=== PATIENT | female | born 1960 | race African-American/Black ===

== ENCOUNTER 2021-05-18 21:00 | Emergency (ER) | payer MEDICARE ==
[~2021-05-18] VITALS: Ht 175.3 cm; Wt 135.9 kg
[~2021-05-18 21:00] MED LIST: ASPIRIN 81M81 MG/TA2 PO; EFFEXOR 75M75 MG/TAB PO; FERRO-TIME325 MG PO; FOLIC ACID 11 MG/TA1 PO; K-TAB10 PO; KLONOPIN 0.5MG0.5 MG PO; LASIX 40MG TABL40 MG PO; LIPITOR20 MG PO; METHOTREXA2.5 MG/TAB PO; NAPROSYN500 MG PO; NEURONTIN300 MG/CAP; PROCARDIA XL 6060 MG PO; TIROSINT100 MC1 PO; VITAMIN C500 MG PO; WELLBUTRIN XL150 MG PO; ZESTRIL40 MG PO; ZYLOPRIM 300MG300 MG PO; ZYRTEC 10MG10 MG PO
[2021-05-18 22:36] LABS: BASO % 0.4 % (0.0-2.0); EOS # 0.1 (0.0-0.7); EOS % 1.4 % (0-4.0); GRAN # 4.5 (1.4-6.5); HEMATOCRIT 37.2 % (37.0-47.0); HEMOGLOBIN 12.3 g/dl (12.5-16.0); LYMPH # 1.9 (1.2-3.4); LYMPH % 26.8 % (20.0-51.0); MEAN CELL VOLUME 85 fl (80.0-100.0); MEAN CORPUSCULAR HEMOGLOBIN 28 pg (27.0-31.0); MEAN CORPUSCULAR HGB CONC 33 g/dl (33.0-37.0); MEAN PLATELET VOLUME 9.1 fl (7.4-10.4); MONO # 0.6 (0.1-0.6); PLATELET COUNT 249 K/mm3 (130-400)
[2021-05-18 22:47] LABS: ALBUMIN 4.4 gm/dL (3.5-5.0); BILIRUBIN,TOTAL 0.2 mg/dL (0.0-1.0); CALCIUM 10.2 mg/dL (8.4-10.2); CREATININE, serum 1.67 (0.52-1.25); POTASSIUM 4.6 mmol/L (3.4-5.0); TOTAL PROTEIN 8.2 gm/dL (6.4-8.2)
[2021-05-19 01:56] VITALS: BP 111/75; PULSE 95; TEMP 97.5
== END 2021-05-19 01:56 | disposition home or self-care (01) ==
LOC: COL.ER 21:00
PROVIDERS: Personal Emergency Response Attendant
DX: R42 Dizziness and giddiness (principal); I10 Essential (primary) hypertension; I25.10 Atherosclerotic heart disease of native coronary artery without angina pectoris; E11.40 Type 2 diabetes mellitus with diabetic neuropathy, unspecified; E89.0 Postprocedural hypothyroidism; Z79.82 Long term (current) use of aspirin; Z79.899 Other long term (current) drug therapy; I25.2 Old myocardial infarction; Z79.890 Hormone replacement therapy
CPT/HCPCS: J7030

== ENCOUNTER 2021-08-10 11:10 | Emergency (ER) | payer MEDICARE ==
[~2021-08-10] VITALS: Ht 175.3 cm; Wt 134.5 kg
[2021-08-10 11:28] VITALS: TEMP 98.2
[2021-08-10 13:10] LABS: BASO % 0.5 % (0.0-2.0); EOS # 0.2 (0.0-0.7); EOS % 2.6 % (0-4.0); GRAN # 3.4 (1.4-6.5); GRAN % 57.7 % (42.2-75.2); HEMATOCRIT 33.6 % (37.0-47.0); HEMOGLOBIN 11.3 g/dl (12.5-16.0); LYMPH # 1.8 (1.2-3.4); LYMPH % 30.9 % (20.0-51.0); MEAN CELL VOLUME 84 fl (80.0-100.0); MEAN CORPUSCULAR HEMOGLOBIN 28 pg (27.0-31.0); MEAN CORPUSCULAR HGB CONC 34 g/dl (33.0-37.0); MEAN PLATELET VOLUME 9.9 fl (7.4-10.4); MONO # 0.5 (0.1-0.6); MONO % 8.1 % (1.7-9.3); PLATELET COUNT 240 K/mm3 (130-400); RED BLOOD COUNT 3.98 M/mm3 (4.10-5.30); REDCELL DISTRIBUTION WIDTH-CV 16.4 % (11.5-14.5)
[2021-08-10 13:30] LABS: ALBUMIN 4.3 gm/dL (3.5-5.0); BILIRUBIN,TOTAL 0.3 mg/dL (0.0-1.0); CALCIUM 9.6 mg/dL (8.4-10.2); CREATININE, serum 1.01 (0.52-1.25); POTASSIUM 4.5 mmol/L (3.4-5.0); TOTAL PROTEIN 7.9 gm/dL (6.4-8.2)
[2021-08-10 17:01] VITALS: BP 137/97; PULSE 77
== END 2021-08-10 17:02 | disposition home or self-care (01) ==
LOC: COL.ER 11:10
PROVIDERS: Nurse Practitioner
DX: S40.012A Contusion of left shoulder, initial encounter (principal); S09.90XA Unspecified injury of head, initial encounter; G20 Parkinson's disease; I10 Essential (primary) hypertension; I25.2 Old myocardial infarction; Z79.82 Long term (current) use of aspirin; Z79.899 Other long term (current) drug therapy; W01.198A Fall on same level from slipping, tripping and stumbling with subsequent striking against other object, initial encounter; Y93.01 Activity, walking, marching and hiking

== ENCOUNTER → 2022-02-07 | Outpatient (CLI) | payer MEDICARE | LOC: MHCPAIN 08:37 | DX: M47.816 Spondylosis without myelopathy or radiculopathy, lumbar region (principal); M53.3 Sacrococcygeal disorders, not elsewhere classified; M54.16 Radiculopathy, lumbar region; M48.16 Ankylosing hyperostosis [Forestier], lumbar region; G20 Parkinson's disease | CPT/HCPCS: G0463 ==

== ENCOUNTER → 2022-02-22 | Outpatient (CLI) | payer MEDICARE | LOC: MHCPAIN 10:36 | DX: M53.3 Sacrococcygeal disorders, not elsewhere classified (principal); M54.16 Radiculopathy, lumbar region; M47.816 Spondylosis without myelopathy or radiculopathy, lumbar region | CPT/HCPCS: J1100; Q9967 ==

== ENCOUNTER 2022-03-17 09:59 | Emergency (ER) | payer MEDICARE ==
[~2022-03-17] VITALS: Ht 172.7 cm; Wt 129.5 kg
[2022-03-17 10:06] VITALS: TEMP 98.6
[2022-03-17 10:55] LABS: COLLECTION METHOD CLEAN CATCH
[2022-03-17 11:00] LABS: BASO % 0.6 % (0.0-2.0); EOS # 0.1 K/mm3 (0.0-0.7); EOS % 3.4 % (0.0-4.0); GRAN # 1.9 K/mm3 (1.4-6.5); HEMATOCRIT 38.7 % (37.0-47.0); HEMOGLOBIN 12.8 g/dl (12.5-16.0); LYMPH % 28.4 % (20.0-51.0); MEAN CELL VOLUME 82 fl (80.0-100.0); MEAN CORPUSCULAR HEMOGLOBIN 27 pg (27-31); MEAN CORPUSCULAR HGB CONC 33 g/dl (33.0-37.0); MEAN PLATELET VOLUME 9.7 fl (7.4-10.4); MONO # 0.4 K/mm3 (0.1-0.6); MONO % 12.3 % (1.7-9.3); PLATELET COUNT 236 K/mm3 (130-400); REDCELL DISTRIBUTION WIDTH-CV 16.2 % (11.5-14.5)
[2022-03-17 11:03] LABS: PH 5 (5-8); SQUAMOUS EPITHELIAL 0-2 /hpf (0-10); URINE APPEARANCE Hazy (CLEAR/HAZY); URINE BACTERIA Rare /hpf (NONE SEEN); URINE BILIRUBIN Negative (NEGATIVE); URINE BLOOD Negative (NEGATIVE); URINE COLOR Yellow (YELLOW); URINE GLUCOSE 3+ (NEGATIVE); URINE KETONE Trace (NEGATIVE); URINE LEUKOCYTE ESTERASE Negative (NEGATIVE); URINE NITRATE Negative (NEGATIVE); URINE PROTEIN(semi-quant) Negative (NEGATIVE); URINE RBC 0-2 /hpf (0-2); URINE UROBILINOGEN Negative (NEGATIVE)
[2022-03-17 11:16] LABS: ALANINE AMINOTRANSFERASE < 6 U/L (0-55); ALKALINE PHOSPHATASE 92 U/L (40-150); ANION GAP 11 mmol/L (7-16); AST,SGOT 14 U/L (5-34); BILIRUBIN,TOTAL 0.4 mg/dL (0.2-1.2); BLOOD UREA NITROGEN 16 mg/dL (10-20); CALCIUM 9.4 mg/dL (8.4-10.2); CARBON DIOXIDE 24 mmol/L (23-31); CHLORIDE 103 mmol/L (98-107); CREATININE, serum 1.19 mg/dL (0.57-1.11); GLUCOSE 87 mg/dL (70-99); POTASSIUM 4.2 mmol/L (3.5-4.5); SODIUM 138 mmol/L (136-145); TOTAL PROTEIN 7.5 gm/dL (6.2-8.1)
[2022-03-17 11:23] LABS: TROPONIN-I < 0.010 ng/mL (0.00-0.033)
[2022-03-17 11:56] VITALS: BP 122/71; PULSE 80
== END 2022-03-17 12:05 | disposition home or self-care (01) ==
LOC: COL.ER 09:59
PROVIDERS: Physician Assistant
DX: J10.1 Influenza due to other identified influenza virus with other respiratory manifestations (principal); M06.9 Rheumatoid arthritis, unspecified; Z28.311 Partially vaccinated for COVID-19; Z20.822 Contact with and (suspected) exposure to COVID-19; Z79.899 Other long term (current) drug therapy
CPT/HCPCS: J1885; J7030

== ENCOUNTER → 2022-03-21 | Outpatient (CLI) | payer MEDICARE | LOC: MHCPAIN 08:12 | DX: M47.896 Other spondylosis, lumbar region (principal); M53.3 Sacrococcygeal disorders, not elsewhere classified; M54.16 Radiculopathy, lumbar region; G20 Parkinson's disease | CPT/HCPCS: G0463 ==

== ENCOUNTER 2022-12-19 10:30 | Outpatient (RCR) | payer MEDICARE ==
[~2022-12-19 10:30] MED LIST changes: +DOXYCYCLINE 10100 MG PO
== END 2022-12-25 | disposition home or self-care (01) ==
LOC: WSST
DX: R41.841 Cognitive communication deficit (principal); R41.3 Other amnesia; R47.89 Other speech disturbances; G20 Parkinson's disease

== ENCOUNTER → 2022-12-24 | Outpatient (CLI) | payer MEDICARE | LOC: MHCPAIN | DX: M53.3 Sacrococcygeal disorders, not elsewhere classified (principal); M47.816 Spondylosis without myelopathy or radiculopathy, lumbar region; M96.1 Postlaminectomy syndrome, not elsewhere classified; M54.16 Radiculopathy, lumbar region | CPT/HCPCS: J1100; Q9967 ==

== ENCOUNTER 2023-01-16 10:30 | Outpatient (RCR) | payer MEDICARE | END 2023-01-22 | disposition home or self-care (01) | LOC: WSST | DX: G20 Parkinson's disease (principal); R41.3 Other amnesia; R41.841 Cognitive communication deficit ==

== ENCOUNTER → 2023-08-30 | Outpatient (CLI) | payer MEDICARE ==
[~2023-08-30] MED LIST changes: +B-12 500 MCG PO; +COMPLETE MULTI1 TAB PO; +COZAAR 25MG25 MG/TAB PO; +EPA FISH OIL1 SGL PO; +ESTRACE0.5 MG PO; +EXELON 1.5MG1.5 MG PO; +GLUCOPHAGE500 MG/TAB PO; +IMDUR 30MG30 MG/TAB; +JARDIANCE25; +MAGNESIUM250 M1 PO; +NATURAL ODORLE400 MG PO; +NORCO 325 MG-51 TAB PO; +NORVASC 5MG5 MG/TAB PO; +PAXLOVID CO-PA1 EACH PO; +PEPCID 20MG TAB20 MG PO; +PHARMASSURE ZIN50 MG PO; +PLAQUENIL 200M200 MG PO; +PRISTIQ 50 MG T50 MG PO; +PROTONIX 40MG T40 MG PO; +SINEMET 25/101 UDTAB PO; +ZANAFLEX 4MG TAB4 MG PO; +ZOFRAN ODT4 MG PO
== END ==
LOC: CANSCHCLI → COL.CARD 10:14 → COL.PUL 11:15 → COL.CARD 11:15
DX: R06.02 Shortness of breath (principal)

== ENCOUNTER → 2023-09-02 | Outpatient (CLI) | payer MEDICARE | LOC: CANSCHCLI → COL.CARD 09:49 → COL.PUL 10:00 → COL.CARD 10:00 | DX: R06.02 Shortness of breath (principal) | CPT/HCPCS: J7674 ==

== ENCOUNTER → 2023-09-04 | Outpatient (CLI) | payer MEDICARE | LOC: MHCPAIN 09:25 | DX: M47.896 Other spondylosis, lumbar region (principal); M54.17 Radiculopathy, lumbosacral region; G89.29 Other chronic pain | CPT/HCPCS: G0463 ==

== ENCOUNTER → 2023-11-28 | Outpatient (CLI) | payer MEDICARE, OTHER ==
[~2023-11-28] MED LIST changes: +EXELON3 MG PO; +HYDROXYCHLOROQ400 MG PO; +IMDUR 30MG30 MG/TAB PO; +METHOTREXATE50/2; +NORVASC 10MG10 MG PO; +OMEGA-3 1000 MG1 CAP PO; +ZYBAN150 M1 PO
== END ==
LOC: MHCPAIN 10:23
DX: M46.1 Sacroiliitis, not elsewhere classified (principal); M47.898 Other spondylosis, sacral and sacrococcygeal region; M54.50 Low back pain, unspecified
CPT/HCPCS: G0260; J0665; J1040; Q9967

== ENCOUNTER → 2023-12-24 | Outpatient (CLI) | payer MEDICARE, OTHER | LOC: MHCPAIN 09:47 | DX: M47.896 Other spondylosis, lumbar region (principal); M54.16 Radiculopathy, lumbar region; M46.1 Sacroiliitis, not elsewhere classified | CPT/HCPCS: G0463 ==

== ENCOUNTER → 2024-01-20 | Outpatient (CLI) | payer MEDICARE, OTHER | LOC: MHCPAIN 07:43 | DX: M54.17 Radiculopathy, lumbosacral region (principal); M06.9 Rheumatoid arthritis, unspecified; M53.3 Sacrococcygeal disorders, not elsewhere classified; G20.C Parkinsonism, unspecified | CPT/HCPCS: G0463 ==

== ENCOUNTER → 2024-02-03 | Outpatient (CLI) | payer MEDICARE, OTHER ==
[~2024-02-03] MED LIST changes: +Iohexol 300 - 10 ML VIAL ONE; +Lidocaine PF 2% (20 MG/ML) 2 ML VIAL ONE
== END ==
LOC: MHCPAIN 11:27
DX: M54.17 Radiculopathy, lumbosacral region (principal); M53.3 Sacrococcygeal disorders, not elsewhere classified
CPT/HCPCS: J1100; Q9967

== ENCOUNTER → 2024-03-09 | Outpatient (CLI) | payer MEDICARE, OTHER ==
[~2024-03-09] MED LIST changes: -Iohexol 300 - 10 ML VIAL ONE; -Lidocaine PF 2% (20 MG/ML) 2 ML VIAL ONE
== END ==
LOC: MHCPAIN 13:56
DX: M54.16 Radiculopathy, lumbar region (principal); M53.3 Sacrococcygeal disorders, not elsewhere classified; M47.816 Spondylosis without myelopathy or radiculopathy, lumbar region; M06.9 Rheumatoid arthritis, unspecified; E11.9 Type 2 diabetes mellitus without complications; G20.C Parkinsonism, unspecified
CPT/HCPCS: G0463

== ENCOUNTER → 2024-05-13 | Outpatient (CLI) | payer MEDICARE | LOC: COL.RAD 09:16 | DX: M47.896 Other spondylosis, lumbar region (principal) ==

== ENCOUNTER → 2024-05-13 | Outpatient (CLI) | payer MEDICARE | LOC: MHCPAIN 08:30 | DX: M47.896 Other spondylosis, lumbar region (principal); M48.061 Spinal stenosis, lumbar region without neurogenic claudication; E11.9 Type 2 diabetes mellitus without complications; G20.C Parkinsonism, unspecified | CPT/HCPCS: G0463 ==

== ENCOUNTER 2024-08-07 06:37 | Emergency (ER) | payer MEDICARE ==
[~2024-08-07] VITALS: Ht 172.7 cm; Wt 132.7 kg
[2024-08-07 06:46] VITALS: TEMP 97.9
[2024-08-07 08:14] LABS: BASO % 0.5 % (0.0-2.0); EOS # 0.1 K/mm3 (0.0-0.7); EOS % 2.3 % (0.0-4.0); GRAN % 64.4 % (42.2-75.2); HEMATOCRIT 39.8 % (37.0-47.0); LYMPH # 1.5 K/mm3 (1.2-3.4); MEAN CELL VOLUME 82 fl (80.0-100.0); MEAN CORPUSCULAR HEMOGLOBIN 27 pg (27-31); MEAN CORPUSCULAR HGB CONC 33 g/dl (33.0-37.0); MEAN PLATELET VOLUME 9.3 fl (7.4-10.4); MONO # 0.5 K/mm3 (0.1-0.6); MONO % 7.5 % (1.7-9.3); PLATELET COUNT 229 K/mm3 (130-400); RED BLOOD COUNT 4.86 M/mm3 (4.10-5.30); REDCELL DISTRIBUTION WIDTH-CV 15.7 % (11.5-14.5)
[2024-08-07 08:19] LABS: INR 0.9 (0.8-3.0); PROTHROMBIN TIME 10.3 SECONDS (9.7-12.8)
[2024-08-07 08:34] LABS: ALANINE AMINOTRANSFERASE 9 U/L (0-55); ALBUMIN 3.7 g/dL (3.4-4.8); ALKALINE PHOSPHATASE 93 U/L (40-150); ANION GAP 10 mmol/L (7-16); AST,SGOT 18 U/L (5-34); BILIRUBIN,TOTAL 0.3 mg/dL (0.2-1.2); BLOOD UREA NITROGEN 26 mg/dL (10-20); CHLORIDE 104 mEq/L (98-107); CREATININE, serum 1.46 mg/dL (0.57-1.11); GLUCOSE 111 mg/dL (70-99); POTASSIUM 4.2 mEq/L (3.5-4.5); SODIUM 141 mEq/L (136-145); TOTAL PROTEIN 7.9 g/dl (6.2-8.1)
[2024-08-07 08:52] LABS: TROPONIN-I < 0.010 ng/mL (0.00-0.033)
[2024-08-07] MEDS ORDERED: Ondansetron 4 MG/2 ML VIAL IV SCH (09:43)
[2024-08-07] MEDS ORDERED: Morphine 4 MG/ML VIAL IV ONE (09:45)
[2024-08-07 10:38] VITALS: BP 128/92; PULSE 75
[2024-08-07] MEDS ORDERED: NORCO 325 MG-51 TAB PO (15:43)
== END 2024-08-07 10:38 | disposition home or self-care (01) ==
LOC: COL.ER 06:37
PROVIDERS: Family Medicine
DX: S00.03XA Contusion of scalp, initial encounter (principal); W18.30XA Fall on same level, unspecified, initial encounter; Y92.091 Bathroom in other non-institutional residence as the place of occurrence of the external cause
CPT/HCPCS: J2270; J2405

== ENCOUNTER → 2024-08-13 | Outpatient (CLI) | payer MEDICARE | LOC: MC.RAD 07:30 | DX: Z12.31 Encounter for screening mammogram for malignant neoplasm of breast (principal); N64.89 Other specified disorders of breast ==

== ENCOUNTER → 2024-08-18 | Outpatient (CLI) | payer MEDICARE | LOC: MHCPAIN 08:29 | DX: M47.27 Other spondylosis with radiculopathy, lumbosacral region (principal); M48.061 Spinal stenosis, lumbar region without neurogenic claudication; M46.1 Sacroiliitis, not elsewhere classified; E11.9 Type 2 diabetes mellitus without complications; Z79.84 Long term (current) use of oral hypoglycemic drugs; G20.A1 Parkinson's disease without dyskinesia, without mention of fluctuations; M06.9 Rheumatoid arthritis, unspecified; E66.9 Obesity, unspecified; Z68.41 Body mass index [BMI] 40.0-44.9, adult | CPT/HCPCS: G0463 ==

== ENCOUNTER → 2024-09-21 | Outpatient (CLI) | payer MEDICARE | LOC: MHCPAIN 12:37 | DX: M47.816 Spondylosis without myelopathy or radiculopathy, lumbar region (principal); M48.061 Spinal stenosis, lumbar region without neurogenic claudication; G89.29 Other chronic pain | CPT/HCPCS: G0463 ==